=== PATIENT | male | born 1985 | race African-American/Black ===

== ENCOUNTER 2016-12-26 13:31 | Emergency (ER) | payer OTHER ==
[~2016-12-26] VITALS: Ht 182.9 cm; Wt 88.5 kg
[2016-12-26] MEDS ORDERED: KEFLEX500 M1 PO (16:31)
[2016-12-26] MEDS ORDERED: SENNA-DOCUSATE1 EACH PO (16:32)
[2016-12-26] MEDS ORDERED: NORCO 5-325 TA1 EACH PO (16:32)
[2016-12-26 16:47] VITALS: BP 109/53
[2016-12-27] MEDS ORDERED: PERCOCET 5-3251 EACH PO (23:30)
== END 2016-12-26 16:51 | disposition home or self-care (01) ==
LOC: ER 13:31
DX: S62.639A Displaced fracture of distal phalanx of unspecified finger, initial encounter for closed fracture (principal); W23.0XXA Caught, crushed, jammed, or pinched between moving objects, initial encounter; Y93.89 Activity, other specified; Y92.89 Other specified places as the place of occurrence of the external cause; Y99.8 Other external cause status

== ENCOUNTER 2020-08-31 09:31 | Emergency (ER) | payer OTHER ==
[~2020-08-31] VITALS: Ht 182.9 cm; Wt 87.5 kg
[~2020-08-31 09:31] MED LIST: KEFLEX500 M1 PO; NORCO 5-325 TA1 EACH PO; PERCOCET 5-3251 EACH PO; SENNA-DOCUSATE1 EACH PO
[2020-08-31 09:44] VITALS: BP 145/87
[2020-08-31] MEDS ORDERED: ATIVAN1 M1 PO ×2 (11:01→11:06)
== END 2020-08-31 11:01 | disposition home or self-care (01) ==
LOC: ER 09:31
DX: U07.1 COVID-19 (principal); F41.9 Anxiety disorder, unspecified; G47.00 Insomnia, unspecified; Z79.891 Long term (current) use of opiate analgesic; Z79.899 Other long term (current) drug therapy